=== PATIENT | male | born 1950 | race Caucasian/White ===

== ENCOUNTER 2021-01-01 11:11 | Emergency (ER) | payer MEDICARE, BC ==
[~2021-01-01] VITALS: Ht 172.7 cm; Wt 75.3 kg
[2021-01-01] MEDS ORDERED: DOXYCYCLINE HYCLATE 100 MG TABLET PO ONE ×2 (11:30→11:45)
[2021-01-01] MEDS ORDERED: IBUPROFEN 400 MG TABLET PO ONE (11:30)
[2021-01-01] MEDS ORDERED: DOXY100C2 PO (11:30)
--- NOTE | 2021-01-01 11:34 | NUR ---
Patient discharged to home in stable condition. Written and verbal after care instructions given. Patient verbalizes understanding of instructions. Stressed follow up or return to ER for worsening s/s.
[2021-01-01] MEDS ORDERED: IBUPROFEN 400 MG TABLET ONE (11:35)
[2021-01-01 11:38] VITALS: BP 138/73
== END 2021-01-01 11:39 | disposition home or self-care (01) ==
LOC: ER 11:11
DX: L73.9 Follicular disorder, unspecified (principal); I10 Essential (primary) hypertension; E78.5 Hyperlipidemia, unspecified
CPT/HCPCS: A4663